=== PATIENT | male | born 1970 | race Caucasian/White ===

== ENCOUNTER 2019-10-06 06:57 | Emergency (ER) | payer BC ==
[2019-10-06] MEDS ORDERED: Ondansetron PF 4 MG/2 ML Vial ONE (08:12)
[2019-10-06] MEDS ORDERED: Ketorolac Tromethamine 30 MG/ML VIAL ONE (08:12)
[2019-10-06 08:41] LABS: ALT (SGPT) 68 U/L (8-55); AST (SGOT) 55 U/L (5-34); Albumin 4.3 g/dL (3.5-5.0); Alkaline Phosphatase 167 U/L (40-110); Anion Gap 15 mmol/L (10-20); BUN (Urea Nitrogen) 15 mg/dL (8.9-20.6); Bilirubin, Total 0.5 mg/dL (0.2-1.2); Calc. Creatinine Clearance 0 mL/min (70-130); Calcium 9.2 mg/dL (7.8-10.44); Carbon Dioxide 24 mmol/L (22-29); Chloride 105 mmol/L (98-107); Estimated GFR-MDRD 76; Globulin 3.5 g/dL (2.4-3.5); Glucose 177 mg/dL (70-105); Potassium 3.6 mmol/L (3.5-5.1); Protein, Total 7.8 g/dL (6.0-8.3); Sodium 140 mmol/L (136-145)
[2019-10-06 08:52] LABS: #Eosinphils 0.1 thou/uL (0.0-0.7); #Lymphocytes 1.1 thou/uL (1.20-3.40); #Monocytes 0.2 thou/uL (0.11-0.59); #Neutrophils 3.2 thou/uL (1.40-6.50); %Eosinophils 1.4 % (0.0-10.0); %Monocytes 4.6 % (0.0-10.0); %Neutrophils 68.9 % (42.0-75.0); Hemoglobin 14.5 g/dL (14.0-18.0); Mean Corpuscular HGB CONC 35.4 g/dL (32.0-36.0); Mean Corpuscular Hemoglobin 34.2 pg (27.0-31.0); Mean Corpuscular Volume 96.4 fL (78.0-98.0); Mean Platelet Volume 9.2 fL (7.4-10.4); Platelet Count 124 thou/uL (130-400); RBC Distribution Width 11.6 % (11.5-14.5); Red Blood Cell (RBC) Count 4.25 mill/uL (4.70-6.10); White Blood Cell (WBC) Count 4.7 thou/uL (4.8-10.8)
--- NOTE | 2019-10-06 08:57 | CT ---
CT OF THE ABDOMEN AND PELVIS WITHOUT IV CONTRAST INDICATION: 49-year-old male with history of hyperlipidemia and left flank pain with hematuria COMPARISON: None FINDINGS: The lack of IV contrast limits evaluation of the solid organs of the abdomen and pelvis. ABDOMEN: Lung bases: Clear Liver: Diffuse fatty infiltration. The liver is enlarged measuring 26.5 cm. Gallbladder: Normal appearing. Pancreas: Normal. Adrenal glands: There is a 2.4 cm nodule in the left adrenal gland that cannot be fully characterize. There is an 8.2 mm right adrenal myelolipoma. Spleen: Enlarged measuring 16 cm. Kidneys and ureters: There is mild left hydronephrosis and left-sided perinephric stranding. There is a 1.4 mm stone within the distal left ureter approximately 1 cm proximal to the left UVJ. No nonobstructing renal calculus is evident. Vasculature: There are mild vascular calcifications seen involving the visualized vasculature. Lymph nodes:No lymphadenopathy. Free fluid in abdomen:No free fluid is evident. PELVIS: Small and large bowel: Normal Appendix:Normal Bladder: Normal. Rectal and perirectal soft tissues:Normal. Reproductive structures: Normal. Free fluid in pelvis: No free fluid is evident. Lymphadenopathy pelvis: No lymphadenopathy is evident. Osseous structures: No acute osseous abnormality. No destructive osteolytic or osteoblastic lesion i s identified. There are healed fracture deformities involving the posterior right, 10th and 11th ribs. Soft tissues:Normal. IMPRESSION: 1. 1.4 mm distal left ureteral calculus with mild left hydronephrosis. 2. Fatty infiltration of liver with hepatosplenomegaly 3. Left adrenal nodule, incompletely characterized. Follow-up CT the abdomen utilizing adrenal mass p rotocol is recommended. 2. Small right adrenal myelolipoma.
[2019-10-06 09:04] LABS: Bacteria/HPF None Seen HPF (None Seen); Bilirubin Negative (Negative); Blood, Urine Trace (Negative); Clarity Clear (Clear); Glucose, Urine (Dipstick) 300 mg/dL (Negative); Ketone, Urine Trace mg/dL (Negative); Leukocyte Negative Leu/uL (Negative); Nitrite Negative (Negative); Protein, Urine (Dipstick) 20 mg/dL (Neg-Trace); RBC/HPF 0-3 HPF (0-3); Specific Gravity, Urine 1.019 (1.002-1.036); Squamous Epithelial 0-3 HPF (0-3); Urobilinogen Normal mg/dL (Less than 2); WBC/HPF 0-3 HPF (0-3)
--- NOTE | 2019-10-06 10:05 | CT ---
EXAM: CT Abdomen Pelvis W WO con DATE: 10/06/2019 9:08 AM INDICATION: Adrenal mass evaluation COMPARISON: Noncontrast CT abdomen pelvis dated October 06, 2019 FINDIN minute and 15 minute delayed images were obtained of the abdomen and pelvis following IV contrast administration. Comparisons are made with prior dated October 06, 2019 at 8:45 AM. This was a noncontrast exam. The 2.4 cm left adrenal lesion has a precontrast Hounsfield units of 15.25. The 1 minute delayed post contrast series demonstrates internal Hounsfield characteristics of the left adrenal gland to be 20.53. The 15 minute delayed the Hounsfield unit is 20.87. Small right adrenal myelolipoma is stable. Mild left hydronephrosis with a small 1.4 mm stone in the distal left ureter. There are mild vascular calcifications seen involving the visualized vasculature. The liver and spleen remain prominent. There is diffuse fatty infiltration. Pancreas and unopacified large and small bowel appear within normal limits. Chronic osseous changes are similar. IMPRESSION: 1. The left adrenal lesion is indeterminate by washout criteria. Follow-up MRI of the abdomen with an d without contrast is recommended for additional characterization. This can be performed as an outpatient in a nonemergent setting. Would recommend the examination to be performed following abatem ent of the patient's mild left renal obstruction. 2. Small right adrenal myelolipoma 3. Fatty liver with hepatosplenomegaly
[2019-10-06] MEDS ORDERED: Morphine 4 MG/ML VIAL ONE (10:21)
[2019-10-06] MEDS ORDERED: Iopamidol-370 76% 500 ML 1 ML ONE (12:20)
== END 2019-10-06 10:43 | disposition home or self-care (01) ==
LOC: ERS 06:57
DX: N13.2 Hydronephrosis with renal and ureteral calculous obstruction (principal); E27.9 Disorder of adrenal gland, unspecified; E78.5 Hyperlipidemia, unspecified; E78.00 Pure hypercholesterolemia, unspecified; I10 Essential (primary) hypertension
CPT/HCPCS: 74176; 74178; 80053; 81003; 81015; 83605; 85025; 87086; 96361; 96374; 96375; J1885; J2270; J2405; Q9967